=== PATIENT | male | born 1965 | race Caucasian/White ===

== ENCOUNTER 2017-08-27 15:13 | Emergency (ER) | payer OTHER ==
[~2017-08-27] VITALS: Ht 182.9 cm; Wt 98.0 kg
[2017-08-27] MEDS ORDERED: JANUVIA100 MG (15:41)
[2017-08-27] MEDS ORDERED: REPAGLINIDE1 MG (15:42)
[2017-08-27] MEDS ORDERED: METOPROLOL SUCC50 MG (15:43)
[2017-08-27] MEDS ORDERED: AVAPRO75 MG (15:43)
[2017-08-27] MEDS ORDERED: CRESTOR10 MG (15:43)
== END 2017-08-27 20:23 | disposition home or self-care (01) ==
LOC: ER 15:13 → EDBD 15:22 → ER 20:23
DX: J32.8 Other chronic sinusitis (principal); H57.8 Other specified disorders of eye and adnexa

== ENCOUNTER 2017-09-12 14:37 | Emergency (ER) | payer OTHER ==
[~2017-09-12] VITALS: Ht 182.9 cm; Wt 97.5 kg
[~2017-09-12 14:37] MED LIST: AVAPRO75 MG; CRESTOR10 MG; JANUVIA100 MG; METOPROLOL SUCC50 MG; REPAGLINIDE1 MG
== END 2017-09-12 16:56 | disposition home or self-care (01) ==
LOC: ER 14:37
DX: B34.9 Viral infection, unspecified (principal); J11.1 Influenza due to unidentified influenza virus with other respiratory manifestations

== ENCOUNTER 2021-03-04 11:55 | Emergency (ER) | payer OTHER ==
[~2021-03-04] VITALS: Ht 182.9 cm; Wt 98.9 kg
[2021-03-04] MEDS ORDERED: PRECOSE25 MG PO (12:35)
[2021-03-04] MEDS ORDERED: BENICAR20 MG PO (12:35)
[2021-03-04] MEDS ORDERED: PEPCID AC20 MG PO (12:36)
[2021-03-04] MEDS ORDERED: TRULICITY1.5 MG/0.5 (12:37)
== END 2021-03-04 20:44 | disposition home or self-care (01) ==
LOC: ER 11:55
DX: K52.9 Noninfective gastroenteritis and colitis, unspecified (principal); Z03.818 Encounter for observation for suspected exposure to other biological agents ruled out; R19.7 Diarrhea, unspecified

== ENCOUNTER 2022-08-17 12:20 | Emergency (ER) | payer OTHER ==
[~2022-08-17] VITALS: Ht 182.9 cm; Wt 99.8 kg
[~2022-08-17 12:20] MED LIST changes: +BENICAR20 MG PO; +PEPCID AC20 MG PO; +PRECOSE25 MG PO; +TRULICITY1.5 MG/0.5
[2022-08-17] MEDS ORDERED: AVAPRO300 MG PO (12:44)
[2022-08-17] MEDS ORDERED: CHILDREN'S ASPI81 MG PO (12:45)
[2022-08-17] MEDS ORDERED: EZALLOR SPRINKL20 MG PO (12:45)
[2022-08-17] MEDS ORDERED: TRIJARDY XR 121 EACH PO (12:46)
== END 2022-08-17 16:57 | disposition home or self-care (01) ==
LOC: ER 12:20
DX: I10 Essential (primary) hypertension (principal); Z88.8 Allergy status to other drugs, medicaments and biological substances